=== PATIENT | female | born 1940 | race Caucasian/White ===

== ENCOUNTER 2017-06-12 16:42 | Emergency (ER) | payer SELFPAY ==
[~2017-06-12] VITALS: Ht 167.6 cm; Wt 68.0 kg
[2017-06-12 16:50] VITALS: BP 158/83
--- NOTE | 2017-06-12 17:00 | NUR ---
RECIEVED PT TO ED BED, PT IS COMPLAINING OF RT EYEBROW LACERATION AFTER SHE TRIPPED AND FELL WHEN SHE WAS COMING OUT FROM AN ELEVATOR, AND HER EYEGLASSES BROKE AND INJURED HER EYEBROW. NO KO. PT HAS NO OTHER COMPLAINTS. A/OX3, VSS RR EVEN AND UNLABORED. SEEN AND EVAL BY ER
--- NOTE | 2017-06-12 17:39 | NUR ---
HANANE HDZ AT BEDSIDE FOR SUTURE PROCEDURE
== END 2017-06-12 17:55 | disposition home or self-care (01) ==
LOC: ER 16:43
DX: S01.111A Laceration without foreign body of right eyelid and periocular area, initial encounter (principal); I10 Essential (primary) hypertension; K21.9 Gastro-esophageal reflux disease without esophagitis; Z79.02 Long term (current) use of antithrombotics/antiplatelets; W01.198A Fall on same level from slipping, tripping and stumbling with subsequent striking against other object, initial encounter; Y93.01 Activity, walking, marching and hiking; Y92.89 Other specified places as the place of occurrence of the external cause; Y99.8 Other external cause status
CPT/HCPCS: A4606; A6402; Z7610

== ENCOUNTER 2017-06-19 14:42 | Emergency (ER) | payer MEDICARE ==
[~2017-06-19] VITALS: Ht 167.6 cm; Wt 68.0 kg
[2017-06-19 14:45] VITALS: BP 136/73
== END 2017-06-19 15:09 | disposition home or self-care (01) ==
LOC: ER 14:47
DX: S01.111D Laceration without foreign body of right eyelid and periocular area, subsequent encounter (principal); I10 Essential (primary) hypertension; K21.9 Gastro-esophageal reflux disease without esophagitis
CPT/HCPCS: A4606; Z7502; Z7610

== ENCOUNTER 2023-02-15 13:57 | Emergency (ER) | payer MEDICARE ==
[~2023-02-15] VITALS: Ht 167.6 cm; Wt 58.1 kg
[2023-02-15 16:24] VITALS: BP 140/82; TEMP 98.1; O2SAT 97
== END 2023-02-15 15:50 | disposition home or self-care (01) ==
LOC: ER 14:01
DX: S61.217A Laceration without foreign body of left little finger without damage to nail, initial encounter (principal); I10 Essential (primary) hypertension; K21.9 Gastro-esophageal reflux disease without esophagitis; Z60.2 Problems related to living alone; W26.0XXA Contact with knife, initial encounter; Y93.89 Activity, other specified; Y92.89 Other specified places as the place of occurrence of the external cause; Y99.8 Other external cause status
CPT/HCPCS: 12001; 99282; A6403